=== PATIENT | male | born 1970 | race African-American/Black ===

== ENCOUNTER 2019-01-10 06:33 | Emergency (ER) | payer OTHER ==
[~2019-01-10] VITALS: Ht 193 cm; Wt 101.0 kg
[~2019-01-10 06:33] MED LIST: HYDR25TA
[2019-01-10 08:21] LABS: CLARITY URINE CLEAR (CLEAR); COLOR URINE YELLOW (YELLOW); KETONES URINE NEGATIVE (NEGATIVE); LEUKOCYTE ESTERASE URINE NEGATIVE (NEGATIVE); NITRITE URINE NEGATIVE (NEGATIVE); OCCULT BLOOD URINE NEGATIVE (NEGATIVE); PROTEIN URINE NEGATIVE (NEGATIVE); SPECIFIC GRAVITY URINE 1.017 (1.005-1.030)
[2019-01-10 08:34] LABS: CHLORIDE 105 mEq/L (98-107)
[2019-01-10 08:35] LABS: BASOPHILS % 0.7 % (0.0-2.0); EOSINOPHILS % 0.9 % (0.0-5.0); HEMATOCRIT. 38.8 % (42.0-52.0); HEMOGLOBIN. 13.9 g/dL (14.0-18.0); LYMPHOCYTES % 35.6 % (20.0-50.0); MEAN CORPUSCULAR HEMOGLOBIN 31.6 pg (28.0-32.0); MEAN CORPUSCULAR VOLUME 88.1 fL (80.0-94.0); MEAN PLATELET VOLUME 8.4 fl (7.4-10.4); MONOCYTES % 9.4 % (2.0-8.0); NEUTROPHILS % 53.4 % (40.0-76.0); PLATELET 246 x1000/uL (130-400); RED CELL DISTRIBUTION WIDTH 13.1 % (11.6-14.6)
[2019-01-10 08:37] LABS: PROTHROMBIN TIME 10.7 sec (9.6-11.0)
[2019-01-10] MEDS ORDERED: POTASSIUM CHLORIDE 20MEQ TABLET SR PO ONE (10:00)
[2019-01-10 10:35] VITALS: BP 129/93
== END 2019-01-10 10:55 | disposition home or self-care (01) ==
LOC: ER 06:33
DX: E87.6 Hypokalemia (principal); R19.7 Diarrhea, unspecified; I10 Essential (primary) hypertension; F12.10 Cannabis abuse, uncomplicated; Z79.899 Other long term (current) drug therapy
CPT/HCPCS: 36415; 86850; 86900; 99283

== ENCOUNTER 2019-05-14 10:07 | Emergency (ER) | payer OTHER ==
[~2019-05-14] VITALS: Ht 193 cm; Wt 95.0 kg
[2019-05-14] MEDS ORDERED: SUMATRIPTAN SUCCINATE 6MG/0.5ML VIAL SUBCUT ONE (11:30)
[2019-05-14 14:10] VITALS: BP 130/88
== END 2019-05-14 14:20 | disposition home or self-care (01) ==
LOC: ER 10:45
DX: G43.909 Migraine, unspecified, not intractable, without status migrainosus (principal); F12.10 Cannabis abuse, uncomplicated; R11.0 Nausea; I10 Essential (primary) hypertension; Z98.890 Other specified postprocedural states
CPT/HCPCS: 96372; 99283; J3030

== ENCOUNTER 2019-08-07 14:44 | Emergency (ER) | payer SELFPAY ==
[~2019-08-07] VITALS: Ht 193 cm; Wt 69.0 kg
[2019-08-07 16:11] VITALS: BP 113/62
== END 2019-08-07 18:05 | disposition home or self-care (01) ==
LOC: ER 14:44
DX: Z11.1 Encounter for screening for respiratory tuberculosis (principal)
CPT/HCPCS: 71250; 99284